=== PATIENT | male | born 1985 | race African-American/Black ===

== ENCOUNTER 2017-08-05 20:10 | Emergency (ER) | payer SELFPAY ==
[~2017-08-05] VITALS: Ht 188 cm; Wt 88.0 kg
[2017-08-05 20:36] VITALS: BP 124/82
== END 2017-08-05 22:43 | disposition left against medical advice (07) ==
LOC: ER 20:10
DX: Z53.21 Procedure and treatment not carried out due to patient leaving prior to being seen by health care provider (principal); F17.210 Nicotine dependence, cigarettes, uncomplicated